=== PATIENT | female | born 1985 | race American Indian/Alaskan Native ===

== ENCOUNTER 2021-03-03 09:51 | Emergency (ER) | payer SELFPAY ==
[2021-03-03] MEDS ORDERED: ONDANSETRON 4 MG/2 ML INJ IV ONE (10:27)
[2021-03-03] MEDS ORDERED: ACETAMINOPHEN 325 MG TAB PO ONE (10:27)
[2021-03-03] MEDS ORDERED: SODIUM CHLORIDE 0.9% 1000 ML 1,000 ML IV ONE (10:27)
--- NOTE | 2021-03-03 10:29 | Emergency Department Report ---
ED General Adult HPI - General Chief complaint: Nausea/Vomiting/Diarrhea Stated complaint: FEVER, NAUSEA Time Seen by Provider: 03/03/21 10:06 Source: patient Mode of arrival: Ambulatory Limitations: No Limitations - History of Present Illness Initial comments: 35-year-old female who denies any significant past medical history presents to the ER today with complaints of flulike symptoms. Patient states that her symptoms started 2 days ago. She reports subjective fever, dry cough, generalized body aches, nausea, vomiting, sore throat, loss of taste and smell and urinary frequency. She denies any apparent ill contacts or recent travel. She has not taken a COVID-19 test since his symptoms started. She states that there is a possibility she could be that she had an abnormal menstrual cycle this month. She states that her period lasted only 1 day. She has not taken a home test. She reports no abdominal pain, chest pain, wheezing, shortness of breath or any additional symptoms. She states that she does smoke but denies any illicit drug use. She drinks occasionally. MD Complaint: flulike symptoms -: days(s) (2) Severity scale (0 -10): 10 - Related Data Previous Rx's Medication Instructions Recorded Last Taken Type Acetaminophen/Codeine [Tylenol 1 tab PO Q6H PRN #10 tab 03/03/21 Unknown Rx /Codeine # 3 tab] Ondansetron [Zofran Odt] 4 mg PO Q8HR PRN #15 tab.rapdis 03/03/21 Unknown Rx Allergies Allergy/AdvReac Type Severity Reaction Status Date / Time ibuprofen [From Motrin] Allergy Rash Verified 03/03/21 09:53 Latex, Natural Rubber Allergy Rash Verified 03/03/21 09:54 Penicillins Allergy Rash Verified 03/03/21 09:53 ED Review of Systems ROS: Stated complaint: FEVER, NAUSEA Other details as noted in HPI Comment: All other systems reviewed and negative Constitutional: chills, fever Eyes: denies: eye pain, eye discharge, vision change ENT: throat pain, congestion. denies: ear pain, dental pain, hearing loss, epistaxis Respiratory: cough. denies: orthopnea, shortness of breath, SOB with exertion, SOB at rest, stridor, wheezing Cardiovascular: denies: chest pain, palpitations Gastrointestinal: nausea, vomiting. denies: abdominal pain, diarrhea, constipation, hematemesis, melena, hematochezia Genitourinary: denies: urgency, dysuria, frequency, hematuria, discharge, abnormal menses, dyspareunia Musculoskeletal: myalgia Skin: denies: rash, lesions, change in color, change in hair/nails, pruritus Neurological: denies: headache, weakness, numbness, paresthesias, confusion, abnormal gait, vertigo Psychiatric: denies: anxiety, depression, auditory hallucinations, visual hallucinations, homicidal thoughts, suicidal thoughts Hematological/Lymphatic: denies: easy bleeding, easy bruising, swollen glands ED Past Medical Hx - Medications Home Medications: Home Medications Medication Instructions Recorded Confirmed Last Taken Type Acetaminophen/Codeine [Tylenol 1 tab PO Q6H PRN #10 tab 03/03/21 Unknown Rx /Codeine # 3 tab] Ondansetron [Zofran Odt] 4 mg PO Q8HR PRN #15 tab.rapdis 03/03/21 Unknown Rx ED Physical Exam - General Limitations: No Limitations ED Course Vital Signs 03/03/21 03/03/21 09:58 14:15 Temperature 98.4 F Pulse Rate 100 H 104 H Respiratory 16 18 Rate Blood Pressure 110/78 122/77 [Right] O2 Sat by Pulse 99 95 Oximetry ED Medical Decision Making - Lab Data Result diagrams: 03/03/21 10:56 03/03/21 10:56 - Radiology Data Radiology results: report reviewed Patient: RAFAELA PEDRAZA MR#: [id number] : 1985 Acct:[id number] Age/Sex: 35 / F ADM Date: 03/03/21 Loc: ED Attending Dr: Ordering Physician: OLAF MANN Date of Service: 03/03/21 Procedure(s): XR chest routine 2V Accession Number(s): [id number] cc: OLAF MANN Fluoro Time In Minutes: CHEST 2 VIEWS INDICATION / CLINICAL INFORMATION: Cough,fever. COMPARISON: None available. FINDINGS: SUPPORT DEVICES: None. HEART / MEDIASTINUM: No significant abnormality. LUNGS / PLEURA: No significant pulmonary or pleural abnormality. No pneumothorax. ADDITIONAL FINDINGS: No significant additional findings. IMPRESSION: 1. No acute findings. Signer Name: Vernon Phillips MD Signed: 03/03/2021 12:33 PM Workstation Name: [id number] Transcribed By: SB Dictated By: VERNON PHILLIPS MD Electronically Authenticated By: VERNON PHILLIPS MD Signed Date/Time: 03/03/211232 DD/ 32 TD/TT: - Medical Decision Making Patient currently resting comfortably, she is not in any acute distress, she has not had any vomiting during stay, she is not toxic or ill-appearing, she is n eurologically intact and has been observed on her phone conversation with her significant other. All labs reviewed, CBC shows leukocytosis with a white count of 19, but the remaining labs are unremarkable. Chest x-ray shows nothing acute. Urinalysis negative for UTI. Rapid flu, and rapid strep negative. She has no meningeal signs. Abdomen soft and nontender. She is not in any respiratory distress. Leukocytosis could be related to demargination from vomiting. I do not suspect sepsis at this time. Also suspect that could be related to a viral illness. Discussed all results, suspected diagnosis and treatment plan with patient. Patient reports loss of taste and smell and recommend that she gets an outpatient COVID-19 test. Patient expressed understanding of all instructions and agree with plan. Patient was stable at time of discharge. Critical care attestation.: If time is entered above; I have spent that time in minutes in the direct care of this critically ill patient, excluding procedure time. ED Disposition Clinical Impression: Leukocytosis, Viral syndrome Disposition: 01 HOME / SELF CARE / HOMELESS Is pt being admited?: No Does the pt Need Aspirin: No Condition: Stable Instructions: Viral Illness, Adult Additional Instructions: I recommend taking the ibuprofen as prescribed to help with any pain. Take the Zofran as prescribed to help with any nausea vomiting. You can take Mucinex or Robitussin from [id number] to help with cough. You can also take Zyrtec, Claritin or Nini to help with any runny nose. Drink lots of fluids. Take a multivitamin. I do recommend that she get COVID-19 test once you leave here today. Recommend that you quarantine at home until you get the results of your test. Follow-up closely with your PCP next week. Return to the ER if your symptoms changes or worsens in any way. Prescriptions: Acetaminophen/Codeine [Tylenol /Codeine # 3 tab] 1 tab PO Q6H PRN #10 tab PRN Reason: Pain , Severe (7-10) Ondansetron [Zofran Odt] 4 mg PO Q8HR PRN #15 tab.rapdis PRN Reason: Vomiting Referrals: [facility] [Provider Group] - 3-5 Days Forms: Work/School Release Form(ED) Time of Disposition: 13:49
[2021-03-03 11:38] LABS: Basophils # (Auto) 0.1 K/mm3 (0.0-0.1); Basophils % (Auto) 0.5 % (0.0-1.8); Eosinophils # (Auto) 0.1 K/mm3 (0.0-0.4); Eosinophils % (Auto) 0.4 % (0.0-4.3); Hematocrit 39.6 % (30.3-42.9); Hemoglobin 12.9 gm/dl (10.1-14.3); Lymphocytes # (Auto) 1.5 K/mm3 (1.2-5.4); Lymphocytes % (Auto) 7.6 % (13.4-35.0); Mean Corpuscular HGB Conc 33 % (30-34); Mean Corpuscular Volume 80 fl (79-97); Monocytes # (Auto) 1.5 K/mm3 (0.0-0.8); Monocytes % (Auto) 7.4 % (0.0-7.3); Platelet Count 171 K/mm3 (140-440); Red Blood Count 4.93 M/mm3 (3.65-5.03); Red Cell Distribution Width 13.7 % (13.2-15.2)
[2021-03-03 12:04] LABS: Alanine Aminotransferase 13 units/L (7-56); Albumin 3.9 g/dL (3.9-5); Blood Urea Nitrogen 9 mg/dL (7-17); Calcium 8.4 mg/dL (8.4-10.2); Hemolysis Index 14
[2021-03-03 12:05] LABS: BUN/Creatinine Ratio 15
--- NOTE | 2021-03-03 12:38 | XRay Report ---
CHEST 2 VIEWS INDICATION / CLINICAL INFORMATION: Cough,fever. COMPARISON: None available. FINDINGS: SUPPORT DEVICES: None. HEART / MEDIASTINUM: No significant abnormality. LUNGS / PLEURA: No significant pulmonary or pleural abnormality. No pneumothorax. ADDITIONAL FINDINGS: No significant additional findings. IMPRESSION: 1. No acute findings. Signer Name: Vernon Block MD Signed: 03/03/2021 12:33 PM Workstation Name: [id number]
[2021-03-03 13:25] LABS: Bilirubin,Urine NEG (Negative); Blood,Urine NEG (Negative); Color,Urine Amber (Yellow); Mucus,Urine 3+ /HPF
[2021-03-03 14:16] VITALS: BP 122/77
== END 2021-03-03 14:18 | disposition home or self-care (01) ==
LOC: ED 09:51
DX: D72.829 Elevated white blood cell count, unspecified (principal); B34.9 Viral infection, unspecified; Z88.6 Allergy status to analgesic agent; Z91.040 Latex allergy status; Z88.0 Allergy status to penicillin
CPT/HCPCS: 36415; 71046; 80053; 81001; 83690; 83735; 84703; 85025; 87116; 87400; 87430; 96361; 96374; 99284; J2405; J7030; Q0162